=== PATIENT | female | born 1985 | race Caucasian/White ===

== ENCOUNTER 2018-09-02 11:07 | Emergency (ER) | payer BC ==
[~2018-09-02] VITALS: Ht 152.4 cm; Wt 54.4 kg
[2018-09-02 12:00] LABS: *URINE HCG, QUAL NEGATIVE (NEGATIVE)
--- NOTE | 2018-09-02 12:21 | NUR ---
Dr Tapia at the bedside for MSE.
[2018-09-02 12:47] VITALS: BP 112/70
== END 2018-09-02 12:59 | disposition home or self-care (01) ==
LOC: ER 11:07
DX: S90.31XA Contusion of right foot, initial encounter (principal); F17.200 Nicotine dependence, unspecified, uncomplicated; W19.XXXA Unspecified fall, initial encounter; Y93.89 Activity, other specified; Y92.89 Other specified places as the place of occurrence of the external cause; Y99.8 Other external cause status
CPT/HCPCS: 73630; 84703; A4663